=== PATIENT | female | born 1970 | race Caucasian/White ===

== ENCOUNTER 2018-08-24 07:09 | Emergency (ER) | payer SELFPAY ==
[~2018-08-24] VITALS: Ht 162.6 cm; Wt 78.3 kg
[2018-08-24] MEDS ORDERED: BUPR150T6 PO (07:32)
[2018-08-24] MEDS ORDERED: PANT40TA5 PO (07:33)
[2018-08-24] MEDS ORDERED: ESTR1TAB80 PO (07:35)
[2018-08-24] MEDS ORDERED: LORazepam 1MG TABLET PO ONE (08:00)
[2018-08-24] MEDS ORDERED: THIAMINE 100MG TABLET PO ONE (08:00)
[2018-08-24 08:07] LABS: BASOPHILS # (AUTO) 0.04 x10^3/uL (0-0.1); BASOPHILS % (AUTO) 1 % (0-1); EOSINOPHILS # (AUTO) 0.08 x10^3/uL (0-0.4); EOSINOPHILS % (AUTO) 1 % (1-7); LYMPHOCYTES # (AUTO) 1.77 x10^3/uL (1-3.4); LYMPHOCYTES % (AUTO) 22 % (22-44); MD NO; MEAN CORPUSCULAR HEMOGLOBIN 33.8 pg (27.0-34.8); MEAN CORPUSCULAR HGB CONC 34.5 g/dL (32.4-35.8); MEAN PLATELET VOLUME 8.7 fL (7.4-10.4); MONOCYTES # (AUTO) 0.52 x10^3/uL (0.2-0.8); MONOCYTES % (AUTO) 7 % (2-9); NEUTROPHILS # (AUTO) 5.59 x10^3/uL (1.8-6.8); NEUTROPHILS % (AUTO) 70 % (42-75); PLATELET COUNT 266 x10^3/uL (130-400); RED BLOOD COUNT 4.34 x10^6/uL (3.82-5.3); RED CELL DISTRIBUTION WIDTH 13.1 % (9.6-15.2)
[2018-08-24 08:18] LABS: ALBUMIN 3.6 g/dL (3.4-5.0); ANION GAP 10 mmol/L (5-15); CALCIUM 8.8 mg/dL (8.5-10.1); CHLORIDE 109 mmol/L (98-107); CREATININE 0.93 mg/dL (0.55-1.02)
[2018-08-24] MEDS ORDERED: THIAMINE 100MG TABLET ONE (08:28)
[2018-08-24] MEDS ORDERED: LORazepam 1MG TABLET ONE (08:29)
[2018-08-24] MEDS ORDERED: ONDANSETRON ODT 4 MG ONE (08:29)
[2018-08-24] MEDS ORDERED: ONDANSETRON ODT 4 MG PO ONE (08:30)
[2018-08-24] MEDS ORDERED: LORA2TAB99 PO (08:48)
[2018-08-24 10:39] VITALS: BP 113/71
== END 2018-08-24 10:41 | disposition home or self-care (01) ==
LOC: ED 09:19
DX: F11.23 Opioid dependence with withdrawal (principal); F41.1 Generalized anxiety disorder
CPT/HCPCS: 36415; 80048; 82040; 85025; 93005; 99285; Q0162

== ENCOUNTER 2021-02-07 15:15 | Outpatient (CLI) | payer OTHER ==
[~2021-02-07 15:15] MED LIST: BUPR150T22 PO; ESTR1TAB80 PO; LORA2TAB99 PO; PANT40TA6 PO
[2021-02-07 16:16] LABS: BASOPHILS % (AUTO) 1 % (0-1); EOSINOPHILS % (AUTO) 2 % (1-7); LYMPHOCYTES % (AUTO) 34 % (22-44); MEAN CORPUSCULAR HEMOGLOBIN 33.6 pg (27.0-34.8); MEAN PLATELET VOLUME 8.5 fL (7.4-10.4); MONOCYTES % (AUTO) 10 % (2-9); NEUTROPHILS % (AUTO) 53 % (42-75); PLATELET COUNT 276 x10^3/uL (130-400); RED BLOOD COUNT 4.32 x10^6/uL (3.82-5.3); RED CELL DISTRIBUTION WIDTH 12.8 % (9.6-15.2)
[2021-02-07 16:17] LABS: MD NO
[2021-02-07] MEDS ORDERED: DIPH25TA52 PO (16:19)
[2021-02-07] MEDS ORDERED: CYCL10TA2 PO (16:19)
[2021-02-07] MEDS ORDERED: TRAM50TA2 PO (16:19)
[2021-02-07] MEDS ORDERED: ESCI5TAB7 PO (16:19)
[2021-02-07 16:25] LABS: ALANINE AMINOTRANSFERASE 71 U/L (12-78); ALBUMIN 3.8 g/dL (3.4-5.0); ANION GAP 3 mmol/L (5-15); CALCIUM 8.9 mg/dL (8.5-10.1); CHLORIDE 109 mmol/L (98-107)
[2021-02-07 16:28] LABS: ALKALINE PHOSPHATASE 44 U/L (45-117); BILIRUBIN,TOTAL 0.3 mg/dL (0.2-1.0)
[2021-02-07 16:30] LABS: INTERNATIONAL NORMALIZED RATIO 0.98 (0.93-1.1); PROTHROMBIN TIME 10.5 Seconds (9.6-11.5)
== END 2021-02-07 23:59 | disposition home or self-care (01) ==
LOC: STAR 15:15
PROVIDERS: ATTEND Neurological Surgery
DX: Z01.812 Encounter for preprocedural laboratory examination (principal); Z20.822 Contact with and (suspected) exposure to COVID-19; M48.02 Spinal stenosis, cervical region
CPT/HCPCS: 36415; 71046; 80053; 85025; 85610; 85730; 93005; U0003

== ENCOUNTER 2021-02-13 05:36 | Inpatient (IN) | payer OTHER ==
[~2021-02-13] VITALS: Ht 162.6 cm; Wt 76.1 kg
[~2021-02-13 05:36] MED LIST changes: +CYCL10TA2 PO; +DIPH25TA52 PO; +ESCI5TAB7 PO; +TRAM50TA2 PO
[2021-02-13] MEDS ORDERED: CHLORHEXIDINE 15 ML UDC PO ONE (06:30)
[2021-02-13] MEDS ORDERED: LACTATED RINGERS 1,000 ML IV SCH (06:30)
[2021-02-13] MEDS ORDERED: EPINEPHRINE 1 MG/ML, 1ML ONE (06:47)
[2021-02-13] MEDS ORDERED: BACITRACIN 50,000 UNIT ONE (06:47)
[2021-02-13] MEDS ORDERED: BUPIVACAINE/PF 0.5% ONE (06:47)
[2021-02-13] MEDS ORDERED: THROMBIN 20,000 UNIT VIAL TP ONE (06:47)
[2021-02-13] MEDS ORDERED: MIDAZOLAM 1 MG/ML, 2ML ONE (07:07)
[2021-02-13] MEDS ORDERED: FENTANYL PF 250 MCG/5ML ONE (07:07)
[2021-02-13] MEDS ORDERED: LIDOCAINE-MPF 2% ,5ML ONE (07:08)
[2021-02-13] MEDS ORDERED: PROPOFOL 50 ML ONE ×2 (07:24→08:32)
[2021-02-13] MEDS ORDERED: PROPOFOL 10 MG/ML, 20ML ONE (07:25)
[2021-02-13] MEDS ORDERED: CEFAZOLIN 1,000 MG ONE (07:25)
[2021-02-13] MEDS ORDERED: DEXAMETHASONE 4 MG/ML, 1ML ONE (07:25)
[2021-02-13] MEDS ORDERED: SUCCINYLCHOLINE 20 MG/ML, 10ML ONE (07:25)
[2021-02-13] MEDS ORDERED: ONDANSETRON 2MG/ML, 2ML ONE (07:25)
[2021-02-13] MEDS ORDERED: LABETALOL 5MG/ML, 20ML IV PRN (07:30)
[2021-02-13] MEDS ORDERED: hydrALAzine 20 MG/ML, 1ML IV PRN (07:30)
[2021-02-13] MEDS ORDERED: EPHEDRINE 50 MG/ML, 1ML IVPush PRN (07:30)
[2021-02-13] MEDS ORDERED: OXYcodone 5 MG/5 ML ORAL.SOL UDC PO PRN (07:30)
[2021-02-13] MEDS ORDERED: ACETAMINOPHEN 325 MG TABLET PO PRN (07:30)
[2021-02-13] MEDS ORDERED: ONDANSETRON 2MG/ML, 2ML IVPush PRN (07:30)
[2021-02-13] MEDS ORDERED: HYDROmorphone 1 MG/ML, 1ML INJ IVPush PRN (07:30)
[2021-02-13] MEDS ORDERED: PROMETHAZINE 25 MG/ML, 1ML IVPush PRN (07:30)
[2021-02-13] MEDS ORDERED: PHENYLEPHRINE 10 MG/ML ONE ×2 (07:40→10:07)
[2021-02-13] MEDS ORDERED: HYDROmorphone 1 MG/ML, 1ML INJ ONE (08:34)
[2021-02-13] MEDS ORDERED: OXYcodone 5 MG/5 ML ORAL.SOL UDC ONE (09:40)
[2021-02-13] MEDS ORDERED: FENTANYL PF 100 MCG/2ML ONE (09:40)
[2021-02-13] MEDS: FENTANYL PF 100 MCG/2ML IV PRN ×2 (09:41→09:55)
[2021-02-13] MEDS ORDERED: METHOCARBAMOL 1,000 MG in DEXTROSE 5% 100 ML IV ONE (10:00)
[2021-02-13] MEDS ORDERED: ONDANSETRON 2MG/ML, 2ML IV PRN (11:30)
[2021-02-13] MEDS ORDERED: DIPHENHYDRAMINE 50 MG/ML, 1ML IVPush PRN (11:30)
[2021-02-13] MEDS ORDERED: MAGNESIUM HYDROXIDE 8%, 30ML UDC PO PRN (11:30)
[2021-02-13] MEDS ORDERED: DEXAMETHASONE 4 MG/ML, 1ML IV PRN (11:30)
[2021-02-13] MEDS ORDERED: SODIUM CHLORIDE 0.9% 1,000ML IV PRN (11:30)
[2021-02-13] MEDS ORDERED: ACETAMINOPHEN 500 MG TABLET PO PRN (11:30)
[2021-02-13] MEDS: DIPHENHYDRAMINE MC SCH ×2 (11:30→19:30)
[2021-02-13] MEDS ORDERED: DIAZEPAM 5 MG TABLET PO PRN (11:30)
[2021-02-13] MEDS ORDERED: DIAZEPAM 5 MG/ML, 2ML IV PRN (11:30)
[2021-02-13] MEDS ORDERED: BISACODYL 10 MG SUPP PR PRN (11:30)
[2021-02-13] MEDS ORDERED: PROMETHAZINE 25 MG/ML, 1ML IM PRN (11:30)
[2021-02-13] MEDS: NS + 20MEQ KCL 1,000 ML IV SCH (12:14)
[2021-02-13] MEDS: morphine SULFATE 10 MG/ML, 1ML IV PRN ×4 (12:32→19:17)
[2021-02-13 12:38] VITALS: BP 122/78
[2021-02-13] MEDS: CEFAZOLIN PMX 2GM/50ML 50 ML IVPB SCH (16:06)
[2021-02-13] MEDS: HYDROcodone/APAP 10/325 MG TABLET PO PRN ×2 (16:07→20:20)
[2021-02-13 19:38] VITALS: BP 123/82
[2021-02-13] MEDS: METHOCARBAMOL 750 MG in DEXTROSE 5% 100 ML IV SCH (19:44)
[2021-02-14] MEDS: HYDROcodone/APAP 10/325 MG TABLET PO PRN ×4 (00:01→12:25)
[2021-02-14 00:13] VITALS: BP 130/82
[2021-02-14] MEDS: NS + 20MEQ KCL 1,000 ML IV SCH ×2 (01:33→11:58)
[2021-02-14] MEDS: METHOCARBAMOL 750 MG in DEXTROSE 5% 100 ML IV SCH ×2 (03:14→11:41)
[2021-02-14 04:12] VITALS: BP 115/73
[2021-02-14] MEDS ORDERED: PANTOPRAZOLE 40MG TABLET PO SCH (06:00)
[2021-02-14 07:03] VITALS: BP 115/73
[2021-02-14] MEDS: CEFAZOLIN PMX 2GM/50ML 50 ML IVPB SCH ×2 (08:00)
[2021-02-14] MEDS ORDERED: [UNRECOGNIZED DRUG - OTHER] HOMEMEDPO SCH (09:00)
[2021-02-14] MEDS ORDERED: ESCITALOPRAM 10MG TABLET PO SCH (09:00)
[2021-02-14] MEDS ORDERED: SENNA/DOCUSATE TABLET PO SCH (09:00)
[2021-02-14] MEDS ORDERED: HYDR-3248 PO (09:48)
[2021-02-14] MEDS ORDERED: METH4TAB2 PO (09:48)
[2021-02-14] MEDS ORDERED: METH-640 PO (09:48)
[2021-02-15] MEDS ORDERED: METHOCARBAMOL 750 MG TABLET PO SCH (18:00)
== END 2021-02-14 14:51 | disposition home or self-care (01) | DRG 472 ==
LOC: ORIP 05:36 → 4NE 10:44 → DCLOUNGE 02-14 14:40
PROVIDERS: ADMIT Neurological Surgery; ATTEND Neurological Surgery
PROC: 0RG20A0 Fusion of 2 or more Cervical Vertebral Joints with Interbody Fusion Device, Anterior Approach, Anterior Column, Open Approach (ICD-10-PCS; 2021-02-13)
PROC: 0RB30ZZ Excision of Cervical Vertebral Disc, Open Approach (ICD-10-PCS; principal; 2021-02-13 07:30)
DX: M48.02 Spinal stenosis, cervical region (principal); G95.9 Disease of spinal cord, unspecified; M40.292 Other kyphosis, cervical region; Q76.1 Klippel-Feil syndrome; Z72.89 Other problems related to lifestyle
CPT/HCPCS: 36415; 72040; J3490; S0020; 86850; 86900; 95938; 95941; C1713; C1776; G0378; J0171; J0690; J1100; J1170; J2250; J2405; J2704; J3010; J3480; C1762; J0330; J2270; J2370; J2800; J7120

== ENCOUNTER → 2021-04-01 | Outpatient (CLI) | payer OTHER ==
[~2021-04-01] MED LIST changes: +HYDR-3248 PO; +METH-640 PO; +METH4TAB2 PO
== END | disposition home or self-care (01) ==
LOC: RAD 12:00
PROVIDERS: ATTEND Student in an Organized Health Care Education/Training Program
DX: M50.30 Other cervical disc degeneration, unspecified cervical region (principal)
CPT/HCPCS: 72040

== ENCOUNTER → 2021-05-21 | Outpatient (CLI) | payer OTHER | END | disposition home or self-care (01) | LOC: RAD 13:32 | PROVIDERS: ATTEND Physician Assistant Surgical | DX: M50.31 Other cervical disc degeneration, high cervical region (principal); Z98.1 Arthrodesis status | CPT/HCPCS: 72050 ==